=== PATIENT | female | born 1980 | race Caucasian/White ===

== ENCOUNTER 2018-04-14 22:52 | Emergency (ER) | payer OTHER ==
[2018-04-14 22:56] VITALS: BP 136/79; PULSE 72; TEMP 98; BMI 24.2
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
[2018-04-14] MEDS ORDERED: AMOX TR/POT CLAV 875MG/125MG TABLETS (FP) PO ONE (23:13)
[2018-04-14] MEDS ORDERED: AMOX TR/POT CLAV 875MG/125MG TABLETS (FP) ONE (23:17)
[2018-04-14] MEDS ORDERED: DIPHTH,PERTUSS(ACELL),TET 0.5 ML DISP.SYRIN IM ONE (23:28)
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
[2018-04-15] MEDS ORDERED: IBUPROFEN 600 MG TABLET (FP) PO ONE ×2 (00:10→00:21)
== END 2018-04-15 00:28 | disposition home or self-care (01) ==
LOC: JER 22:52
PROC: 3E0234Z Introduction of Serum, Toxoid and Vaccine into Muscle, Percutaneous Approach (ICD-10-PCS; principal; 2018-04-14)
DX: Z77.21 Contact with and (suspected) exposure to potentially hazardous body fluids (principal); S59.811A Other specified injuries right forearm, initial encounter; S50.811A Abrasion of right forearm, initial encounter; Y35.811A Legal intervention involving manhandling, law enforcement official injured, initial encounter; Y93.89 Activity, other specified; Y92.89 Other specified places as the place of occurrence of the external cause; Y99.8 Other external cause status; Y07.9 Unspecified perpetrator of maltreatment and neglect
CPT/HCPCS: 73110-TC-RT-FY; 73130-TC-RT-FY; 90715; 99284-25

== ENCOUNTER 2018-08-05 22:12 | Emergency (ER) | payer OTHER ==
[2018-08-05] MEDS ORDERED: ACETAMINOPHEN 325 MG TABLET (FP) PO ONE (22:17)
[2018-08-05 22:19] VITALS: BP 120/91; PULSE 78; TEMP 98.1; BMI 23.7
[2018-08-05] MEDS ORDERED: ONDANSETRON *ODT* 4 MG TABLET SL ONE (22:22)
[2018-08-05] MEDS ORDERED: ACETAMINOPHEN 325 MG TABLET (FP) ONE (22:28)
[2018-08-05] MEDS ORDERED: ONDANSETRON *ODT* 4 MG TABLET ONE (22:28)
[2018-08-05] MEDS ORDERED: KETOROLAC TROMETHAMINE 30 MG/1 ML VIAL IM ONE (23:39)
[2018-08-05] MEDS ORDERED: KETOROLAC TROMETHAMINE 30 MG/1 ML VIAL ONE (23:44)
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
== END 2018-08-06 00:17 | disposition home or self-care (01) ==
LOC: JER 22:12
PROC: 3E0233Z Introduction of Anti-inflammatory into Muscle, Percutaneous Approach (ICD-10-PCS; principal; 2018-08-05)
DX: S13.4XXA Sprain of ligaments of cervical spine, initial encounter (principal); M62.838 Other muscle spasm; W03.XXXA Other fall on same level due to collision with another person, initial encounter; Y93.89 Activity, other specified; Y92.89 Other specified places as the place of occurrence of the external cause; Y99.0 Civilian activity done for income or pay
CPT/HCPCS: 70450-TC; 72125-TC; 84703; 99281-25; Q0162

== ENCOUNTER 2019-03-09 15:14 | Emergency (ER) | payer OTHER ==
[2019-03-09 15:26] VITALS: BP 129/79; PULSE 55; TEMP 98; BMI 24.1
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
[2019-03-09] MEDS ORDERED: KETOROLAC TROMETHAMINE 30 MG/1 ML VIAL IM ONE (16:52)
[2019-03-09] MEDS ORDERED: KETOROLAC TROMETHAMINE 30 MG/1 ML VIAL ONE (16:55)
== END 2019-03-09 18:51 | disposition home or self-care (01) ==
LOC: JERFT 15:14
PROC: 3E0233Z Introduction of Anti-inflammatory into Muscle, Percutaneous Approach (ICD-10-PCS; principal; 2019-03-09)
DX: M54.2 Cervicalgia (principal); R51 Headache; S19.80XA Other specified injuries of unspecified part of neck, initial encounter; V43.52XA Car driver injured in collision with other type car in traffic accident, initial encounter; Y92.414 Local residential or business street as the place of occurrence of the external cause; Y93.89 Activity, other specified; Y99.8 Other external cause status
CPT/HCPCS: 70450-TC; 72125-TC; 84703; 99282-25

== ENCOUNTER 2020-12-12 17:27 | Emergency (ER) | payer OTHER ==
[2020-12-12 18:02] VITALS: BP 121/99; PULSE 81; TEMP 98.1; BMI 22.6
[2020-12-12] MEDS ORDERED: ACETAMINOPHEN 500 MG TABLET (FP) PO ONE (18:30)
[2020-12-12] MEDS ORDERED: KETOROLAC TROMETHAMINE 15 MG/ML VIAL IM ONE (18:30)
[2020-12-12] MEDS ORDERED: LIDOCAINE 5% TOPICAL PATCH TP ONE (18:35)
[2020-12-12] MEDS ORDERED: LIDOCAINE 5% TOPICAL PATCH ONE (18:59)
[2020-12-12] MEDS ORDERED: ACETAMINOPHEN 500 MG TABLET (FP) ONE (18:59)
[2020-12-12] MEDS ORDERED: KETOROLAC TROMETHAMINE 30 MG/1 ML VIAL ONE (18:59)
[2020-12-12] MEDS ORDERED: LIDOCAINE PATCH REMOVAL MC SCH (22:00)
== END 2020-12-12 23:02 | disposition home or self-care (01) ==
LOC: FER 17:27
PROC: 3E023GC Introduction of Other Therapeutic Substance into Muscle, Percutaneous Approach (ICD-10-PCS; principal; 2020-12-12)
DX: M54.2 Cervicalgia (principal); R51.9 Headache, unspecified; M79.642 Pain in left hand
CPT/HCPCS: 72125-TC; 73110-TC-LT-FY; 73130-TC-LT-FY; 99284-25

== ENCOUNTER 2021-02-20 18:20 | Emergency (ER) | payer OTHER ==
[2021-02-20 18:41] VITALS: BP 107/79; PULSE 58; TEMP 99.5; BMI 23.3
== END 2021-02-20 18:45 | disposition home or self-care (01) ==
LOC: FER 18:20
DX: Z77.21 Contact with and (suspected) exposure to potentially hazardous body fluids (principal)
CPT/HCPCS: 99282-25

== ENCOUNTER 2021-06-04 19:21 | Emergency (ER) | payer OTHER ==
[2021-06-04 19:53] VITALS: BP 108/80; PULSE 54; TEMP 98.9; BMI 22.6
[2021-06-04] MEDS ORDERED: IBUPROFEN 600 MG TABLET (FP) PO ONE ×2 (20:04→20:18)
[2021-06-04] MEDS ORDERED: CLINDAMYCIN HCL 150 MG CAPSULE (FP) PO ONE (20:04)
[2021-06-04] MEDS ORDERED: FAMOTIDINE 20 MG TABLET PO ONE (20:04)
[2021-06-04] MEDS ORDERED: CLINDAMYCIN HCL 150 MG CAPSULE (FP) ONE (20:18)
[2021-06-04] MEDS ORDERED: FAMOTIDINE 20 MG TABLET ONE (20:18)
== END 2021-06-04 20:26 | disposition home or self-care (01) ==
LOC: FER 19:21
DX: S51.851A Open bite of right forearm, initial encounter (principal); W50.3XXA Accidental bite by another person, initial encounter; Y35.93XA Legal intervention, means unspecified, suspect injured, initial encounter
CPT/HCPCS: 99283-25